=== PATIENT | male | born 1980 | race Caucasian/White ===

== ENCOUNTER 2016-07-13 12:42 | Day surgery (SDC) | payer MEDICARE, MEDICAID ==
[~2016-07-13 12:42] MED LIST: ACETAMINOPHEN WITH CODEINE 1 EACH TABLET PO PRN; MORPHINE SULFATE 2 MG/ML DISP.SYRIN IV PRN; RINGERS SOLUTION,LACTATED 1,000 ML IV PRN; ceFAZolin SODIUM 1 GM in DEXTROSE 5 % IN WATER 100 ML IV PRN; oxyCODONE HCL/ACETAMINOPHEN 1 TAB TABLET PO PRN
[2016-07-13] MEDS ORDERED: RINGERS SOLUTION,LACTATED 1,000 ML IV ONE (13:45)
[2016-07-13] MEDS ORDERED: BUPIVACAINE HCL 50 ML VIAL IJ ONE ×2 (14:30)
[2016-07-13] MEDS ORDERED: BACITRACIN ZINC 30 APPL TUBE TP ONE ×2 (14:33→14:55)
[2016-07-13 16:28] VITALS: BP 125/78
== END 2016-07-13 12:43 | disposition home or self-care (01) ==
LOC: AMB 12:42
PROVIDERS: ATTEND Urology
PROC: 0VBQ0ZZ Excision of Bilateral Vas Deferens, Open Approach (ICD-10-PCS; principal; 2016-07-13 13:50)
DX: Z30.2 Encounter for sterilization (principal); F90.9 Attention-deficit hyperactivity disorder, unspecified type; F31.81 Bipolar II disorder; K21.9 Gastro-esophageal reflux disease without esophagitis; E66.9 Obesity, unspecified; Z68.42 Body mass index [BMI] 45.0-49.9, adult